=== PATIENT | female | born 1990 | race African-American/Black ===

== ENCOUNTER 2018-12-01 18:56 | Emergency (ER) | payer MEDICAID ==
[~2018-12-01] VITALS: Ht 167.6 cm; Wt 87.0 kg
[~2018-12-01 18:56] MED LIST: IBUP-1636
[2018-12-01 21:35] VITALS: BP 117/70
== END 2018-12-01 21:36 | disposition home or self-care (01) ==
LOC: ER 18:56
DX: B99.9 Unspecified infectious disease (principal); H10.89 Other conjunctivitis; F17.200 Nicotine dependence, unspecified, uncomplicated
CPT/HCPCS: 99283

== ENCOUNTER 2019-02-25 11:25 | Emergency (ER) | payer MEDICAID ==
[~2019-02-25] VITALS: Ht 162.6 cm; Wt 90.0 kg
[2019-02-25 12:46] VITALS: BP 120/75
== END 2019-02-25 12:47 | disposition home or self-care (01) ==
LOC: ER 11:25
DX: H10.9 Unspecified conjunctivitis (principal); F17.210 Nicotine dependence, cigarettes, uncomplicated
CPT/HCPCS: 99283

== ENCOUNTER 2019-03-11 14:43 | Emergency (ER) | payer MEDICAID ==
[~2019-03-11] VITALS: Ht 167.6 cm; Wt 98.0 kg
[2019-03-11] MEDS ORDERED: BACITRACIN ZINC OINT UDPKT TOP ONE (21:15)
[2019-03-11] MEDS ORDERED: TETANUS, DIPHTHERIA, PERTUSSIS VAC/PF 0.5ML (>7YR OLD) IM ONE (21:15)
[2019-03-11] MEDS: BACITRACIN 15GM TUBE TOP NR ×2 (21:35→21:37)
[2019-03-11 22:15] VITALS: BP 155/91
== END 2019-03-11 22:17 | disposition home or self-care (01) ==
LOC: ER 14:43
DX: L03.115 Cellulitis of right lower limb (principal); F17.210 Nicotine dependence, cigarettes, uncomplicated
CPT/HCPCS: 90471; 90715; 99283